=== PATIENT | female | born 1995 | race Caucasian/White ===

== ENCOUNTER 2018-07-10 06:25 | Day surgery (SDC) | payer BC ==
[~2018-07-10 06:25] MED LIST: Buffered Lidocaine 0.9% SYRIN* 5 ML/SYR SYRINGE INTRADERM ONE; Famotidine IV* 10 MG/ML 2 ML (20 mg) IV ONE; Famotidine IV* 10 MG/ML 2 ML (20 mg) ONE
[2018-07-10] MEDS ORDERED: Lidocaine 1% MPF wEPI 200,000* 30 ML SDV ONE (07:14)
[2018-07-10] MEDS ORDERED: ROPIVACAINE 5 MG/ML 30 ML BTL (0.5%) ONE (07:14)
[2018-07-10] MEDS ORDERED: ceFAZolin 2 GM PREMIX in ORs 2 GM/50 ML BAG IVPB ONE (07:15)
[2018-07-10] MEDS ORDERED: fentaNYL* 50 MCG/ML 2 ML VIAL (100 MCG VIAL) ONE ×2 (07:24→07:43)
[2018-07-10] MEDS ORDERED: Midazolam* 1 MG/ML 5 ML VIAL (5 MG) ONE (07:24)
[2018-07-10] MEDS ORDERED: Lidocaine 2% PF * 5 ML VIAL ONE (08:00)
[2018-07-10] MEDS ORDERED: Propofol* 10 MG/ML 20 ML BTL IV PUSH ONE ×2 (08:00→09:40)
[2018-07-10] MEDS ORDERED: Succinylcholine* 20 MG/ML 10 ML VIAL ONE (08:00)
[2018-07-10] MEDS ORDERED: Ketorolac INJ* 30 MG/ML 1 ML VIAL ONE (08:00)
[2018-07-10] MEDS ORDERED: Ondansetron INJ* 2 MG/ML VIAL ONE (08:00)
[2018-07-10] MEDS ORDERED: DiMENhydriNATE IV* 50 MG/ML VIAL ONE (08:00)
[2018-07-10] MEDS ORDERED: Dexamethasone IV* 4 MG/ML 1 ML (4 MG) ONE (08:00)
[2018-07-10] MEDS ORDERED: DiMENhydriNATE IV* 50 MG/ML VIAL IV PUSH PRN (08:03)
[2018-07-10] MEDS ORDERED: Acetaminophen TAB* 325 MG PO PRN (08:03)
[2018-07-10] MEDS ORDERED: oxyCODONE TAB* 5 MG TAB PO PRN (08:03)
[2018-07-10] MEDS ORDERED: HYDROmorphone INJ1* 1 MG/ML SYRINGE IV PRN (08:03)
[2018-07-10] MEDS ORDERED: Naloxone* 0.4 MG/ML 1 ML VIAL IV PRN (08:03)
[2018-07-10] MEDS ORDERED: HYDROmorphone INJ* 0.5 MG/0.5 ML SYRINGE ONE ×2 (08:44→09:19)
[2018-07-10] MEDS ORDERED: oxyCODONE/Acetamin 5/325 MG* TAB ONE (09:57)
[2018-07-10 11:11] VITALS: BP 119/85
--- NOTE | 2018-07-11 03:30 | OP ---
CC: [facility] DATE OF OPERATION: 07/10/18 - [facility] DATE OF : 89 SURGEON: Elijah Gaines MD REACTOR FUELING SUPERVISOR: KATYA Baron. An assistant operator was needed for the entirety of the case to help with positioning, retraction and was utilized throughout all portions of the case. ANESTHESIOLOGIST: Dr. Arias. ANESTHESIA: General. PRE-OP DIAGNOSIS: Right knee, grade 3 ACL rupture of a previously reconstructed x2 as well as a medial meniscus tear. POST-OP DIAGNOSIS: 1. Medial and lateral meniscus tear. 2. 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 3. Symptomatic hardware. OPERATIVE PROCEDURE: Right knee arthroscopy with: 1. Partial medial and partial lateral meniscectomy. 2. Chondroplasty of the patella. 3. Synovectomy anteriorly and medially. 4. Removal of loose body greater than 5 mm. 5. Drilling of the ACL tunnels with allograft bone graft to the tunnels. 6. Removal of hardware from a separate incision about the tibia. COMPLICATIONS: None. ESTIMATED BLOOD LOSS: Minimal. TOURNIQUET TIME: Zero minutes. INDICATIONS: Edith Pitt is a 22-year-old female who has complicated history with 2 previous ACL reconstructions, which is the first one is in 2012 and 2013 , second one in 2014, the first surgery was done in an anatomic fashion, but with hamstring hybridization. The second one was all allograft. She had failed both. She has pain as well as catching instability. She has elected to proceed with surgical treatment. Risks and benefits were discussed at length and included, but not limited to bleeding, infection, damage to nerves, vessels , surrounding structures, wound nonhealing, persistent pain, need for further surgery, scarring, stiffness, incomplete relief of symptoms, risks of anesthesia , risk of DVT. The patient did have a history of DVT in the past, we will protect her with Lovenox after surgery. Also, because of the patient's preop imaging including CT scan that demonstrated widened bone tunnels, decision was made and the patient was also told that she may not be able to have a one-stage revision and needed two-stage revision with bone grafting of the tunnels. She verbalized understanding. The consent was changed to reflect that. DESCRIPTION OF PROCEDURE: The patient was greeted in the preoperative area by the attending surgeon. Correct extremity was marked and the consent was confirmed. The patient was brought back to the operating suite, where he was placed in supine position on operating table. She then underwent general anesthesia after which she was appropriately positioned in the bed. The lateral post was positioned. A roper bag was placed to keep the knee at 90 degrees. The right knee was prepped and draped in the usual sterile fashion beginning chlorhexidine soap, scrub and alcohol wipe and a final prep with ChloraPrep. After appropriate surgical pause indicating site, side, procedure and administration of antibiotics, the knee was intra-articularly injected with 1% lidocaine with epi. The anterolateral portal was then made sharply with 11 blade. The scope was introduced into the joint. The joint was examined. There were grade 2 and 3 changes about the inferior medial aspect of the patella. There was abundant synovitis anteriorly in scar tissue. Anterior medial portal was made in outside-in fashion. Shaver was used to debride back the abundant synovitis. The ACL had obviously torn off the femoral side and it was scarred to the PCL. The fibers were then teased out carefully and the biters were used to help remove the remaining stump. The lateral wall was exposed using electrocautery device and shaver. The tibial tunnel was also identified, the evidence of a previous ACL stump was identified and including the allograft. The shaver was used to debride back the unstable flaps because the patient had 2 previous revisions and there was concern for bone tunnel widening, decision was made to try to expose the bone tunnels. A tip-to-tip guide was placed in the center of the tibial footprint and a separate incision to the previous medial incision was then made again. The soft tissues were carefully dissected because it was a tip-to-tip guide landed, which was right on top of the staple and the previous screw, decision was made to remove the Collins staple. Using osteotomes and rongeur, the Collins staple was carefully removed from the bone in its entirety. There was also a biocomp PEEK screw that was present. We did not have a the appropriate screw tank truck driver but because it looked to be biocomp, the decision was made to try to drill through this. Attention was directed back to arthroscopy. The tip-to-tip guide was placed at about 56 degrees just below the previous interfering screw. Once the appropriate position was identified, this was then overdrilled with size 10 mm full-bore reamer. This exposed the tunnel and demonstrated that it had some tunnel widening particularly close to the more superficial cortical surface. The tunnel was then rasped. All soft tissue was removed. The care was placed to prevent fluid egress, but even the fluid leaked around that. Attention was then directed to the femoral tunnel. The awl was used to hesham the provisional starting point. This was then used as a reference point for the final tunnel. The knee was then hyperflexed and Lieberman and Nephew straight guide was placed in the center of the femoral tunnel. It was drilled, the Beath pin was advanced fully. This was then overdrilled with size 9 mm low profile reamer, the tunnel looked to be concentric and intact , but again based on preop imaging, there was concern that there was tunnel widening to a width of 12 mm. At this point, the attention was directed to the remainder of the arthroscopy. The knee was placed in a [id number] position and the lateral compartment was identified. There were grade 2 changes to the lateral plateau grade 1 changes to the lateral femoral condyle. There was evidence of lateral meniscus tearing and fraying even extending to the root. The shaver and biters were used to debride this back to stable layer. Attention was then directed to medial compartment. There were grade 0 to 1 changes. Small areas of grade 2 changes. The medial plateau had grade 0 to 1 changes. The meniscus had an obvious unstable flap extending from the root that was flipping into the notch. This was debrided back using biters and melissa. Evidence of a previous meniscus repair was present, but the unstable flaps were debrided back. Once this was complete, attention was directed back to the tunnels. At this point, because of the patient's preoperative imaging and because of the concern that the even old graft would have fit in the tunnels and the suspensor fixation is an option but may not be adequate as it could break through the tunnels, the decision was made to bone graft the tunnels. Allograft that had been previously ordered with all fluid taken out of the knee, carefully placed through the cannula into the femoral tunnel and then impacted into place with a tamp. Once this defect was filled, the fluid was turned on briefly and there was no evidence of the graft spilling out. Attention was then directed to the tibial tunnel with a curette used that was placed under arthroscopic visualization on the intraarticular part of the tibia. The bone graft was then placed extra- articularly through the tibial defect and impacted into position. Once this filled the entirety of the defect, the scope was brought back into the joint, and the graft was visualized and found to have not penetrated through the joint. Final images were obtained. The knee was then taken through range of motion. There was no evidence of graft spill over. The wounds were then copiously irrigated with sterile saline. The portals were closed with 3-0 nylon. The skin with 2-0 Vicryl, 3-0 nylon in interrupted fashion. The knee was intraarticularly and superficially injected with 0.2% ropivacaine. Sterile dressings were applied as well as Cryo/Cuff and a hinged knee brace locked at 0. She was awoken from anesthesia, transferred to PACU in stable condition. POSTOPERATIVE PLAN: She will be nonweightbearing for about 2 weeks. She will be on Lovenox during these 2 weeks. She will be discharged on pain medications , antibiotics. I will see the patient back in 10 to 14 days. [id number] #: [id number] NIRAV
== END 2018-07-10 11:07 | disposition home or self-care (01) ==
LOC: OREAST 06:25
PROVIDERS: ATTEND Orthopaedic Surgery
DX: S83.511A Sprain of anterior cruciate ligament of right knee, initial encounter (principal); S83.241A Other tear of medial meniscus, current injury, right knee, initial encounter; S83.281A Other tear of lateral meniscus, current injury, right knee, initial encounter; X50.9XXA Other and unspecified overexertion or strenuous movements or postures, initial encounter; Y92.9 Unspecified place or not applicable; T84.84XA Pain due to internal orthopedic prosthetic devices, implants and grafts, initial encounter; Y83.1 Surgical operation with implant of artificial internal device as the cause of abnormal reaction of the patient, or of later complication, without mention of misadventure at the time of the procedure; Z87.891 Personal history of nicotine dependence; F41.8 Other specified anxiety disorders; Z86.718 Personal history of other venous thrombosis and embolism
CPT/HCPCS: 81025; 88300; A9270-GY; C1776; J0330; J0690; J1100; J1170; J1240; J1885; J2001; J2250; J2405; J2704; J2795; J3010

== ENCOUNTER 2023-01-17 23:57 | Inpatient (IN) ==
[2023-01-18] MEDS ORDERED: Buffered Lidocaine 1% SYRIN 1 ml INTRADERM ONE ×2 (00:50→10:17)
[2023-01-18] MEDS ORDERED: Promethazine INJ(RESTRICTED) 25 MG/ML 1 ml VIAL IV ONE (00:54)
[2023-01-18 01:13] LABS: ABS Basophils 0.1 10^3/uL (0.0-0.1); ABS Eosinophils 0.1 10^3/uL (0.0-0.5); ABS Lymphocytes 2.1 10^3/uL (1.0-4.8); ABS Monocytes 0.8 10^3/uL (0.0-0.9); ABS Neutrophils 6.7 10^3/uL (1.5-7.6); Eosinophil % 0.8 %; Hematocrit 36.5 % (35-45); Hemoglobin 12.7 g/dL (11.5-14.3); Lymphocyte % 21.5 %; Mean Corpuscular Hemoglobin 32.1 pg (27-33); Mean Corpuscular Hgb Conc 34.8 g/dL (31-36); Mean Corpuscular Volume 92.3 fL (80-97); Mean Platelet Volume 9.7 fL (7.5-11.2); Platelet Count 219 10^3/uL (150-450); Red Blood Count 3.96 10^6/uL (3.63-4.92); Red Cell Distribution Width 15.6 % (12-17); White Blood Count 9.7 10^3/uL (3.8-11.8)
[2023-01-18] MEDS ORDERED: Promethazine INJ(RESTRICTED) 25 MG/ML 1 ml VIAL IV PRN (10:17)
[2023-01-18] MEDS ORDERED: Lactated Ringers 1000 ml BAG 1,000 ML IV ONE ×2 (10:17→11:33)
[2023-01-18] MEDS ORDERED: Nalbuphine 10 MG/ML 1 ML VIAL IV PRN (10:17)
[2023-01-18] MEDS ORDERED: Oxytocin in LR 20,000 MILLI.UNIT/1,000 ML BAG IV SCH ×2 (10:30→18:00)
[2023-01-18] MEDS ORDERED: OBEPIDURAL (200 ML) 200 ML EPIDURAL ONE (10:33)
[2023-01-18] MEDS ORDERED: Lidocaine 1.5% EPI 1:200,000 30 ML SDV ONE (10:33)
[2023-01-18] MEDS ORDERED: Phenylephrine 40 mcg/mL 10mL (400mcg) SYRINGE ONE (10:54)
[2023-01-18] MEDS ORDERED: Lactated Ringers 1000 ml BAG 1,000 ML IV SCH ×3 (11:00→18:00)
[2023-01-18 11:06] LABS: Urine Benzodiazepine Screen None Detected (None Detect); Urine Cannabinoids Screen None Detected (None Detect); Urine Opiates Screen None Detected (None Detect)
[2023-01-18] MEDS ORDERED: Sodium Citrate/Citric Acid LIQ 15 ML UDC PO PRN (11:33)
[2023-01-18] MEDS ORDERED: Phenylephrine 40 mcg/mL 10mL (400mcg) SYRINGE IV PUSH PRN ×2 (11:33)
[2023-01-18] MEDS ORDERED: OBEPIDURAL (200 ML) 200 ML EPIDURAL SCH (12:00)
[2023-01-18 13:12] LABS: Urine Appearance Clear; Urine Bilirubin Negative (Negative); Urine Blood 1+ (Negative); Urine Color Yellow; Urine Glucose Negative (Negative); Urine Ketones Negative (Negative); Urine Nitrite Negative (Negative); Urine Protein Negative (Negative); Urine Specific Gravity 1.016 (1.002-1.030); Urine Urobilinogen Negative (Negative)
[2023-01-18 13:16] LABS: Urine Bacteria Absent (Absent); Urine Red Blood Cell 3+(>10/hpf) (Absent); Urine Squamous Epithelial Cell Present (Absent); Urine White Blood Cell Trace(0-5/hpf) (Absent)
[2023-01-18] MEDS ORDERED: Witch Hazel PAD JAR TOPICAL PRN (17:57)
[2023-01-18] MEDS ORDERED: Glycerin ADULT 2.4 gm SUPP PR PRN (17:57)
[2023-01-18] MEDS ORDERED: Dibucaine 1% OINT 28.35 GM TUBE PR PRN (17:57)
[2023-01-18] MEDS ORDERED: Oxytocin 10 UNITS/ML 1 ML VIAL IV ONE (17:57)
[2023-01-18] MEDS: Enoxaparin 40 MG/0.4 ML SYR SUBCUT SCH (22:38)
[2023-01-19 07:06] LABS: ABS Eosinophils 0.1 10^3/uL (0.0-0.5); ABS Lymphocytes 1.6 10^3/uL (1.0-4.8); ABS Monocytes 0.9 10^3/uL (0.0-0.9); ABS Neutrophils 11.8 10^3/uL (1.5-7.6); Eosinophil % 0.5 %; Hematocrit 34.1 % (35-45); Hemoglobin 11.6 g/dL (11.5-14.3); Lymphocyte % 10.8 %; Mean Corpuscular Hemoglobin 31.7 pg (27-33); Mean Corpuscular Hgb Conc 34.1 g/dL (31-36); Mean Corpuscular Volume 93.1 fL (80-97); Mean Platelet Volume 9.3 fL (7.5-11.2); Platelet Count 174 10^3/uL (150-450); Red Blood Count 3.66 10^6/uL (3.63-4.92); Red Cell Distribution Width 15.8 % (12-17); White Blood Count 14.4 10^3/uL (3.8-11.8)
[2023-01-19] MEDS ORDERED: Varicella Virus Vaccine Live 0.5 ML VIAL SUBCUT ONE (09:00)
[2023-01-20] MEDS: Enoxaparin 40 MG/0.4 ML SYR SUBCUT SCH (00:01)
[2023-01-20 08:11] VITALS: BP 125/79
== END 2023-01-20 12:02 | disposition home or self-care (01) | DRG 560 ==
LOC: MCHOBOUT 23:57 → MCHOB 01-18 09:36
PROVIDERS: ADMIT Obstetrics & Gynecology; ATTEND Obstetrics & Gynecology